=== PATIENT | male | born 1985 | race Caucasian/White ===

== ENCOUNTER 2017-02-25 12:24 | Emergency (ER) | payer BC ==
[~2017-02-25] VITALS: Ht 167.6 cm; Wt 102.1 kg
[~2017-02-25 12:24] MED LIST: NORCO 325 MG-51 TAB PO; PREDNISONE 10MG10 MG PO
--- OUTSIDE RECORDS SUMMARY | 2017-02-25 12:28 | External Medical Summary Rpt | CCD ---
Author Author , RAFAT DOUGLASS Address Unknown Phone [email or web address] Purpose Continuity of Care Document - through 2016 Problems Code Diagnosis DOS Provider Status M54.40 LUMBAGO WITH SCIATICA, UNSPECIFIED SIDE
--- OUTSIDE RECORDS SUMMARY | 2017-02-25 12:28 | External Medical Summary Rpt | CCD ---
Author Author , RAFAT DOUGLASS Address Unknown Phone [email or web address] Purpose Continuity of Care Document - through 2016 Problems Code Diagnosis DOS Provider Status M54.40 LUMBAGO WITH SCIATICA, UNSPECIFIED SIDE
--- OUTSIDE RECORDS SUMMARY | 2017-02-25 12:28 | External Medical Summary Rpt | CCD ---
Demographics Preferred Language Lebanese Marital Status Unknown Presybeterian Affiliation Unknown Race Unknown Ethnic Group Unknown Author Author , RAFAT DOUGLASS Address Unknown Phone Immunization No patient found.
--- OUTSIDE RECORDS SUMMARY | 2017-02-25 12:28 | External Medical Summary Rpt | CCD ---
Demographics Preferred Language Citizen Of [place] Marital Status Unknown Congregational Affiliation Unknown Race Unknown Ethnic Group Unknown Author Author , RAFAT DOUGLASS Address Unknown Phone Immunization No patient found.
[2017-02-25] MEDS ORDERED: FOLBIC RF1 TAB PO (12:42)
[2017-02-25] MEDS ORDERED: L-ARGININE500 M3 PO (12:43)
--- NOTE | 2017-02-25 12:52 | Emergency Room Report ---
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 Y Clinical Suspician of Infection? N Mental Status: 1 - Regular (Normal Baseline) Sepsis Risk:Low Sepsis Risk Have you (or family members/close friends) recently traveled outside the [place]? N If Yes, where/when: Have you had exposure to infectious disease within the past month? N TB? Other? Specify: She states onset of 5 AM and pressure in his RIGHT forehead area states he has a pressure type headache and this headache is throbbing and states he took his blood pressure at home and it was 105. He denies any history of migraine. Does have photophobia he states now the headache is in his bilateral frontal area. New headache for the patient. No complaint of neck stiffness ALLERGIES Coded Allergies: No Known Drug Allergies (NKDA) (11/04/16) Home Medications Reported Medications B12/LEVOMEFOLATE CALCIUM/B-6 (Folbic Rf Tablet) 1 TAB PO DAILY Arginine (L-Arginine) 3 GM PO DAILY History Medical History General CAD? No Angina: No NV: No Hypertension? No Hyperlipidemia? No CHF? No DVT? No PE? No COPD? No Asthma? No Anemia? No GERD? No Gastric ulcers? No GI Bleed? No Hernia? No Thyroid Problems? No Hypothyroidism? No CVA? No Seizures? No Diabetes? No Renal Insuffiency? No End Stage Renal Disease? No UTI? No Stones? No BPH? No GB Disease: No Nephritic Syndrome? No Asplenia? No Hepatitis? No Sickle Cell Disease? No Arthritis? No Migraines? No Cataracts? No Glaucoma? No MRSA? No HIV? No TB? No Anxiety? No Depression? No Cancer? No Site: N More? No Immunization Hx DT/Tetanus > 10 Years Ago Surgical Hx Previous Surgery?Y ADNOIDS EARTUBES TONGUE TIED Social History Smoking Hx Smoker: Never Smoker Tobacco: No Alcohol Alcohol: No Review of Systems All Other Systems Reviewed and Negative Physical Exam Vital Signs Vital Signs Date Time Temp Pulse Resp B/P Pulse O2 O2 Flow FiO2 Ox Delivery Rate 02/25 1230 99.7 95 18 138/87 97 General Appearance: Nontoxic Head: Normocephalic, without obvious abnormality, atraumatic. Eyes: conjunctiva/corneas clear ENT: Mucous membranes moist. Neck: No jugular venous distention. supple Cardiac: regular rate and rhythm Lungs: Clear to auscultation bilaterally Abdomen: Nontender, Nondistended, positive bowel sounds, no rebound : No CVA tenderness Extremities: no edema Musculoskeletal: No chest wall tenderness Skin: No rashes or lesions to exposed skin. Neurologic: Alert and oriented x3 Cranial nerves intact Strength 5 out of 5 Sensation intact to light touch Psychiatric: Normal affect (Ashlee GILES, Mauricio) General Appearance normal appearance Respiratory Status No: respiratory distress. Cardiovascular normal exam Neurologic alert Medical Decision Making LABS/Meds/Orders Pt receiving controlled substance in ED? No Comment 150pm Radiologist states that CT head is negative headache is resolved negative Kernig's and negative Brudzinski's Results/Orders Current Medication Orders Sig/Rosemary Start time Last Medication Dose Route Stop Time Status Admin Sodium Chloride 1,000 ML .STK-MED ONE 02/25 1307 DC IV Diphenhydramine HCl 25 MG ONCE ONE 02/25 1300 DC IV 02/25 1301 Metoclopramide HCl 10 MG ONCE ONE 02/25 1300 DC IVP 02/25 1301 Sodium Chloride 1,000 ML .Q1H1M 02/25 1300 AC IV 02/25 1400 Sodium Chloride 10 ML PRN PRN 02/25 1300 AC IV 02/26 1252 Sodium Chloride 10 ML PRN PRN 02/25 1300 AC IV 02/26 1254 Orders Procedure Date/time Status DIET-NOTHING BY MOUTH 02/25 D Active IV SALINE LOCK 02/[address] HEAD REQ 02/[address] HEAD W/O CONTRAST 02/25 UNK Active Departure Departure Time of Disposition 1356 Disposition DC Home or Self Care(routine) Clinical Impression Primary Impression: Headache Qualifiers: Headache type: unspecified Headache chronicity pattern: unspecified pattern Intractability: not intractable Qualified Code: R51 - Headache Condition STABLE Patient Instructions DI for Headache, Migraine -- Adult Additional Instructions return if headache worsens, any problems call for followup with primary md and recheck Discharge Counseling Counseled pt/family regarding diagnosis, test results, medications/RX, home care, follow up needs Prescriptions Current Visit Scripts Prochlorperazine Maleate (Compazine) 10 MG PO Q6HP PRN BREAKTHROUGH MOD TO SEV PAIN #10 TAB ED Critical Care Critical Care No at 1358
[2017-02-25] MEDS ORDERED: COMPAZINE10 M1 PO (13:53)
--- NOTE | 2017-02-25 13:58 | RADIOLOGY REPORT PS360 ---
CT HEAD W/O CONTRAST INDICATION: Right-sided headache, some nausea, no previous studies for comparison Routine axial images for brain followed by additional post-processing axial bone window images. Axial CT scanning from the base of the skull through the vertex to evaluate the brain was performed. Subsequent post processing 2-D CT bone windows were submitted to PACS and are useful to evaluate calvarium, visualize portions of paranasal sinuses, mastoids and base of skull. Multiaxial scans are obtained from the base of the skull to the vertex and performed without contrast. The base of the skull appeared normal. The ventricular system was normal. There was no ischemic infarct or bleed and there were no extra-axial fluid collections. The bony calvarium appeared intact. IMPRESSION: Negative noncontrast CT scan of the brain.
[2017-02-25 14:29] VITALS: BP 115/67
== END 2017-02-25 14:30 | disposition home or self-care (01) ==
LOC: UTC 12:24 → ER 12:27 → UTC 12:27 → ER 14:30
DX: R51 Headache (principal)